=== PATIENT | male | born 1960 | race Caucasian/White ===

== ENCOUNTER → 2020-11-04 | Outpatient (CLI) | payer BC ==
[~2020-11-04] MED LIST: FLONASE NASAL S16 GM NS; MOTRIN 800800 MG/TAB PO; NORCO 325 MG-51 TAB PO; TYLENOL 325MG325 MG PO
== END ==
LOC: COL.RAD 07:00
DX: R10.13 Epigastric pain (principal)
CPT/HCPCS: Q9967